=== PATIENT | male | born 1970 | race African-American/Black ===

== ENCOUNTER 2016-09-20 09:52 | Emergency (ER) | payer MEDICARE, MEDICAID, SELFPAY ==
[2016-09-20] MEDS ORDERED: ADDERALL XR 2020 M1 PO (10:07)
[2016-09-20] MEDS ORDERED: WELLBUTRIN XL150 M1 PO (10:08)
[2016-09-20] MEDS ORDERED: SEROQUEL200 M2 PO (10:08)
[2016-09-20] MEDS ORDERED: TRAMADOL HCL50 M2 PO (11:41)
== END 2016-09-20 12:08 ==
LOC: EDMED 09:52
DX: S82.142A Displaced bicondylar fracture of left tibia, initial encounter for closed fracture (principal); W01.0XXA Fall on same level from slipping, tripping and stumbling without subsequent striking against object, initial encounter; Y92.830 Public park as the place of occurrence of the external cause

== ENCOUNTER 2016-10-07 19:02 | Inpatient (IN) | payer MEDICARE, OTHER ==
[~2016-10-07 19:02] MED LIST: ADDERALL XR 2020 M1 PO; SEROQUEL200 M2 PO; TRAMADOL HCL50 M2 PO; WELLBUTRIN XL150 M1 PO
[2016-10-07 19:58] LABS: BASO % 1.7 % (0-2); BASO ABSOLUTE COUNT 0.1 tho/cmm (0.0-0.2); EOSINOPHIL ABSOLUTE COUNT 0.4 tho/cmm (0.0-0.7); HCT-HEMATOCRIT 43.1 % (36.0-53.5); HGB-HEMOGLOBIN 15.2 gm/dl (13.5-17.0); IMMATURE GRANULOCYTES ABSOLUTE 0.01 tho/cmm (0-0.03); IMMATURE GRANULOCYTES PERCENT 0.2 % (0-0.3); LYMPH % 36.6 % (20-45); MCH (MEAN CORPUSCULAR HGB) 33.4 pg (28.0-32.0); MCHC MEAN CORPUSCULAR HGB CONC 35.3 % (32.0-36.0); MCV (MEAN CELL VOLUME) 94.7 fl (82.0-96.0); MEAN PLATELET VOLUME 9.1 cmc (9.4-12.4); MONO % 10.7 % (0-12); MONOCYTE ABSOLUTE COUNT 0.6 tho/cmm (0.0-1.2); NEUTROPHIL ABSOLUTE COUNT 2.4 tho/cmm (1.6-8.0); NEUTROPHIL-AUTOMATED 2.4 tho/cmm (1.6-8.0); NEUTROPHILS % 43.8 % (40-80); PLATELET COUNT 289 tho/cmm (150-450); RED BLOOD COUNT 4.55 mil/cmm (4.40-5.70); RED CELL DISTRIBUTION WIDTH 12.2 % (12.4-16.4); WHITE BLOOD COUNT 5.4 tho/cmm (4.0-10.0)
[2016-10-07 20:15] LABS: ALB/GLOB RATIO 0.8 (0.8-2.0); ALBUMIN 3.5 g/dl (3.5-5.0); ALCOHOL (ETOH) 114 mg/dl (<10); ALKALINE PHOSPHATASE 115 U/L (33-138); ALT/SGPT 101 U/L (12-78); ANION GAP 14 mmol/L (0-20); AST/SGOT 120 U/L (10-40); BLOOD UREA NITROGEN 14 mg/dl (6-24); CALCIUM 8.5 mg/dl (8.5-10.5); CARBON DIOXIDE-VENOUS 25 mmol/L (22-32); CHLORIDE 103 mmol/l (96-110); CREATININE 0.94 mg/dl (0.60-1.30); GLUCOSE 75 mg/dL (70-110); SODIUM 138 mmol/L (135-145); eGFR VALUE FOR BLACK >90 mL/Min
[2016-10-07 20:34] LABS: ACETAMINOPHEN LEVEL <2.1 ug/ml (10-30); SALICYLATE <2.8 mg/dl (2.8-20)
[2016-10-08 10:37] LABS: ALB/GLOB RATIO 0.8 (0.8-2.0); ALBUMIN 3.4 g/dl (3.5-5.0); BILIRUBIN,DIRECT 0.3 mg/dl (0.0-0.3); BILIRUBIN,TOTAL 1.3 mg/dl (0.0-1.5)
[2016-10-10] MEDS ORDERED: NAPROSYN500 M1 PO (16:18)
[2016-10-10] MEDS ORDERED: ULTRAM50 M1 PO (16:18)
[2016-10-10] MEDS ORDERED: WELLBUTRIN XL300 M3 PO (16:28)
[2016-10-10] MEDS ORDERED: DILTIAZEM 24HR120 M4 PO (16:28)
== END 2016-10-10 17:20 | DRG 563 ==
LOC: EDMED 19:02 → EMR2 22:17 → CCU 22:25 → 5WF 10-08 19:54
PROVIDERS: Emergency Medicine; Internal Medicine; ADMIT Hospitalist
DX: S82.142A Displaced bicondylar fracture of left tibia, initial encounter for closed fracture (principal); R45.851 Suicidal ideations; F31.89 Other bipolar disorder; F20.0 Paranoid schizophrenia; I10 Essential (primary) hypertension; F10.129 Alcohol abuse with intoxication, unspecified; Z76.5 Malingerer [conscious simulation]
CPT/HCPCS: G0378; G0480; G8978-GP-CJ; G8979-GP-CI

== ENCOUNTER 2016-11-08 08:58 | Inpatient (IN) | payer MEDICARE ==
[~2016-11-08 08:58] MED LIST changes: +DILTIAZEM 24HR120 M4 PO; +NAPROSYN500 M1 PO; +ULTRAM50 M1 PO; +WELLBUTRIN XL300 M3 PO
[2016-11-08] MEDS ORDERED: NORVASC10 M2 PO (11:43)
[2016-11-08] MEDS ORDERED: IBUPROFEN600 M1 PO (11:44)
[2016-11-08] MEDS ORDERED: ROXICODONE5 M2 PO (11:45)
[2016-11-08 12:35] LABS: BASO % 0.6 % (0-2); EOS % 4.1 % (0-7); EOSINOPHIL ABSOLUTE COUNT 0.2 tho/cmm (0.0-0.7); HCT-HEMATOCRIT 40.3 % (36.0-53.5); HGB-HEMOGLOBIN 14.3 gm/dl (13.5-17.0); IMMATURE GRANULOCYTES ABSOLUTE 0.01 tho/cmm (0-0.03); IMMATURE GRANULOCYTES PERCENT 0.2 % (0-0.3); MCH (MEAN CORPUSCULAR HGB) 33.3 pg (28.0-32.0); MCHC MEAN CORPUSCULAR HGB CONC 35.5 % (32.0-36.0); MCV (MEAN CELL VOLUME) 93.7 fl (82.0-96.0); MEAN PLATELET VOLUME 9.6 cmc (9.4-12.4); MONO % 8.1 % (0-12); MONOCYTE ABSOLUTE COUNT 0.4 tho/cmm (0.0-1.2); NEUTROPHIL ABSOLUTE COUNT 2.3 tho/cmm (1.6-8.0); NEUTROPHIL-AUTOMATED 2.3 tho/cmm (1.6-8.0); PLATELET COUNT 233 tho/cmm (150-450); RED CELL DISTRIBUTION WIDTH 12.6 % (12.4-16.4); WHITE BLOOD COUNT 4.9 tho/cmm (4.0-10.0)
[2016-11-08 12:36] LABS: URINE BILIRUBIN NEGATIVE (NEG); URINE BLOOD NEGATIVE (NEG); URINE GLUCOSE (UA) NEGATIVE (NEG); URINE KETONE NEGATIVE (NEG); URINE LEUKOCYTE ESTERASE NEGATIVE (NEG); URINE NITRITE NEGATIVE (NEG); URINE PROTEIN NEGATIVE (NEG); URINE SPECIFIC GRAVITY 1.015 (1.003-1.030)
[2016-11-08 12:37] LABS: URINE APPEARANCE CLEAR; URINE COLOR YELLOW
[2016-11-08 12:42] LABS: ALCOHOL (ETOH) 134 mg/dl (<10); ANION GAP 15 mmol/L (0-20); BLOOD UREA NITROGEN 15 mg/dl (6-24); CALCIUM 8.4 mg/dl (8.5-10.5); CARBON DIOXIDE-VENOUS 22 mmol/L (22-32); CHLORIDE 106 mmol/l (96-110); CREATININE 0.96 mg/dl (0.60-1.30); GLUCOSE 103 mg/dL (70-110); POTASSIUM 4.3 mmol/L (3.7-5.1); SODIUM 139 mmol/L (135-145); eGFR VALUE FOR BLACK >90 mL/Min
[2016-11-09 07:35] LABS: BASO % 0.5 % (0-2); EOS % 7.4 % (0-7); EOSINOPHIL ABSOLUTE COUNT 0.3 tho/cmm (0.0-0.7); HCT-HEMATOCRIT 40.2 % (36.0-53.5); HGB-HEMOGLOBIN 14.5 gm/dl (13.5-17.0); IMMATURE GRANULOCYTES ABSOLUTE 0.01 tho/cmm (0-0.03); IMMATURE GRANULOCYTES PERCENT 0.3 % (0-0.3); LYMPH % 40.8 % (20-45); LYMPH ABSOLUTE COUNT 1.6 tho/cmm (0.8-4.5); MCH (MEAN CORPUSCULAR HGB) 33.8 pg (28.0-32.0); MCHC MEAN CORPUSCULAR HGB CONC 36.1 % (32.0-36.0); MCV (MEAN CELL VOLUME) 93.7 fl (82.0-96.0); MEAN PLATELET VOLUME 9.6 cmc (9.4-12.4); MONO % 11.6 % (0-12); MONOCYTE ABSOLUTE COUNT 0.4 tho/cmm (0.0-1.2); NEUTROPHIL ABSOLUTE COUNT 1.5 tho/cmm (1.6-8.0); NEUTROPHIL-AUTOMATED 1.5 tho/cmm (1.6-8.0); NEUTROPHILS % 39.4 % (40-80); PLATELET COUNT 203 tho/cmm (150-450); RED BLOOD COUNT 4.29 mil/cmm (4.40-5.70); RED CELL DISTRIBUTION WIDTH 12.4 % (12.4-16.4); WHITE BLOOD COUNT 3.8 tho/cmm (4.0-10.0)
[2016-11-09 07:43] LABS: ANION GAP 13 mmol/L (0-20); BLOOD UREA NITROGEN 15 mg/dl (6-24); CALCIUM 8.4 mg/dl (8.5-10.5); CARBON DIOXIDE-VENOUS 26 mmol/L (22-32); CHLORIDE 104 mmol/l (96-110); CREATININE 0.93 mg/dl (0.60-1.30); GLUCOSE 96 mg/dL (70-110); POTASSIUM 3.8 mmol/L (3.7-5.1); SODIUM 139 mmol/L (135-145); eGFR VALUE FOR BLACK >90 mL/Min
[2016-11-10 13:26] LABS: BASO % 0.7 % (0-2); EOS % 6.4 % (0-7); EOSINOPHIL ABSOLUTE COUNT 0.3 tho/cmm (0.0-0.7); HCT-HEMATOCRIT 41.2 % (36.0-53.5); HGB-HEMOGLOBIN 14.7 gm/dl (13.5-17.0); IMMATURE GRANULOCYTES ABSOLUTE 0.01 tho/cmm (0-0.03); IMMATURE GRANULOCYTES PERCENT 0.2 % (0-0.3); LYMPH % 24.4 % (20-45); LYMPH ABSOLUTE COUNT 1.1 tho/cmm (0.8-4.5); MCH (MEAN CORPUSCULAR HGB) 33.4 pg (28.0-32.0); MCHC MEAN CORPUSCULAR HGB CONC 35.7 % (32.0-36.0); MCV (MEAN CELL VOLUME) 93.6 fl (82.0-96.0); MEAN PLATELET VOLUME 9.7 cmc (9.4-12.4); MONO % 9.7 % (0-12); MONOCYTE ABSOLUTE COUNT 0.4 tho/cmm (0.0-1.2); NEUTROPHIL ABSOLUTE COUNT 2.7 tho/cmm (1.6-8.0); NEUTROPHIL-AUTOMATED 2.7 tho/cmm (1.6-8.0); NEUTROPHILS % 58.6 % (40-80); PLATELET COUNT 201 tho/cmm (150-450); RED CELL DISTRIBUTION WIDTH 12.2 % (12.4-16.4); WHITE BLOOD COUNT 4.6 tho/cmm (4.0-10.0)
[2016-11-10 13:33] LABS: ANION GAP 12 mmol/L (0-20); BLOOD UREA NITROGEN 13 mg/dl (6-24); CALCIUM 8.4 mg/dl (8.5-10.5); CARBON DIOXIDE-VENOUS 25 mmol/L (22-32); CHLORIDE 102 mmol/l (96-110); CREATININE 0.99 mg/dl (0.60-1.30); POTASSIUM 4.1 mmol/L (3.7-5.1); SODIUM 135 mmol/L (135-145); eGFR VALUE FOR BLACK >90 mL/Min
[2016-11-10 13:41] LABS: GLUCOSE 166 mg/dL (70-110)
--- NOTE | 2016-11-11 18:58 | NUR ---
PATIENT CONTINUES TO ESCALATE THIS AFTERNOON AND ROTATES BETWEEN WANTING TO LEAVE FACILITY OR STAY TO SEE ORTHOPEDIC DOCTOR ABOUT KNEE. PATIENT UPSET THAT DOCTORS ARE NOT COMING IN QUICKER TO SEE HIM. PATIENT USING VERBALLY AGRESSIVE LANGUAGE, IS YELLING, AND CONTINUES TO PACE AROUND NURSES STATION. PATIENT DEMANDS TO HAVE CLOTHES AND BACK PACK RETURNED. PATIENT DRESSES IN HIS OWN CLOTHES. SECURITY CALLED TO COME AND SPEAK WITH PATIENT TO DEESCALATE. PATIENT CONTINUES TO ASK FOR BAG AND THEN TAKES BAG INTO BATHROOM. THIS RN ASKS PATIENT IF ANY MEDICATIONS ARE IN BAG AND PATIENT HANDS OVER 3 INHALERS. AFTER CONTINUES SUSPICIOUS ACTIVITY WITH BAG AND ESCALATING BEHAVIOR SECURITY RETURNS TO GO THROUGH BAG WITH PATIENT WHO THEN HANDS OVER PRESCRIPTION BOTTLES OF SEROQUEL AND IBUPROFEN. PATIENT CONTINUES TO PACE AROUND ROOM AND NURSES STATION UNTIL AFTER 14OO AND THEN LAYS DOWN AFTER SPEAKING WITH ORTHOPEDIC NURSE PRACTITIONER
== END 2016-11-12 11:55 | DRG 885 ==
LOC: EDMED 08:58 → EMR2 19:21 → BURN 11-10 16:49
PROVIDERS: Internal Medicine; ADMIT Hospitalist
DX: F20.9 Schizophrenia, unspecified (principal); Z91.19 Patient's noncompliance with other medical treatment and regimen; I10 Essential (primary) hypertension; S82.122A Displaced fracture of lateral condyle of left tibia, initial encounter for closed fracture; J45.909 Unspecified asthma, uncomplicated; B18.2 Chronic viral hepatitis C; F32.9 Major depressive disorder, single episode, unspecified; Z59.0 Homelessness
CPT/HCPCS: G0480; J2060